=== PATIENT | male | born 1950 | race Caucasian/White ===

== ENCOUNTER → 2017-01-03 | Outpatient (CLI) | payer MEDICARE | LOC: COL.VAS 07:59 | DX: I65.21 Occlusion and stenosis of right carotid artery (principal); H93.8X1 Other specified disorders of right ear ==

== ENCOUNTER → 2019-12-05 | Outpatient (CLI) | payer MEDICARE, OTHER | LOC: COL.RAD 11-08 10:30 | DX: Z13.6 Encounter for screening for cardiovascular disorders (principal); Z87.891 Personal history of nicotine dependence ==

== ENCOUNTER 2021-12-31 16:11 | Emergency (ER) | payer MEDICARE, OTHER ==
[~2021-12-31] VITALS: Ht 185.4 cm; Wt 95.5 kg
[2021-12-31 16:30] VITALS: BP 176/95; PULSE 63; TEMP 98.5
[2021-12-31 17:16] LABS: BASO % 0.4 % (0.0-2.0); EOS % 0.6 % (0.0-4.0); GRAN # 4.4 K/mm3 (1.4-6.5); GRAN % 64.3 % (42.2-75.2); HEMATOCRIT 40.8 % (42.0-52.0); LYMPH # 1.6 K/mm3 (1.2-3.4); LYMPH % 24.1 % (20.0-51.0); MEAN CELL VOLUME 100 fl (80.0-100.0); MEAN CORPUSCULAR HEMOGLOBIN 34 pg (27-31); MEAN CORPUSCULAR HGB CONC 34 g/dl (33.0-37.0); MEAN PLATELET VOLUME 9.4 fl (7.4-10.4); MONO # 0.7 K/mm3 (0.1-0.6); PLATELET COUNT 198 K/mm3 (130-400); RED BLOOD COUNT 4.08 M/mm3 (4.20-5.60); REDCELL DISTRIBUTION WIDTH-CV 13.1 % (11.5-14.5)
[2021-12-31 17:28] LABS: ALBUMIN 3.2 gm/dL (3.4-4.8); BILIRUBIN,TOTAL 0.6 mg/dL (0.2-1.2); CALCIUM 8.9 mg/dL (8.4-10.2); CREATININE, serum 0.95 mg/dL (0.72-1.25); POTASSIUM 4.3 mmol/L (3.5-4.5); TOTAL PROTEIN 6.5 gm/dL (6.2-8.1)
== END 2021-12-31 18:03 | disposition left against medical advice (07) ==
LOC: COL.ER 16:11
PROVIDERS: Physician Assistant
DX: S09.90XA Unspecified injury of head, initial encounter (principal); S01.111A Laceration without foreign body of right eyelid and periocular area, initial encounter; I48.91 Unspecified atrial fibrillation; Z79.01 Long term (current) use of anticoagulants; W01.198A Fall on same level from slipping, tripping and stumbling with subsequent striking against other object, initial encounter

== ENCOUNTER 2022-05-29 08:02 | Emergency (ER) | payer MEDICARE, OTHER ==
[~2022-05-29] VITALS: Ht 182.9 cm; Wt 95.5 kg
[2022-05-29 08:09] VITALS: BP 135/80; TEMP 98.7
[2022-05-29] MEDS ORDERED: ELIQUIS 5MG PO (08:09)
[2022-05-29 09:28] VITALS: PULSE 48
== END 2022-05-29 09:28 | disposition home or self-care (01) ==
LOC: COL.ER 08:02
DX: S01.21XA Laceration without foreign body of nose, initial encounter (principal); S01.81XA Laceration without foreign body of other part of head, initial encounter; I48.91 Unspecified atrial fibrillation; Z79.01 Long term (current) use of anticoagulants; W01.198A Fall on same level from slipping, tripping and stumbling with subsequent striking against other object, initial encounter; Y92.480 Sidewalk as the place of occurrence of the external cause

== ENCOUNTER → 2022-06-07 | Outpatient (CLI) | payer MEDICARE, OTHER ==
[~2022-06-07] MED LIST: ATIVAN 0.50.5 MG/TAB PO; COREG12.5 MG PO; ELIQUIS 5MG PO; LASIX 40MG TABL40 MG PO; LEXAPRO20 MG PO; LIPITOR 10MG10 MG PO; NORVASC 5MG5 MG/TAB PO; SYNTHROID0.1 MG/TAB PO; TAMBOCOR50 MG PO
[2022-06-07 12:01] VITALS: BP 134/84; PULSE 51; TEMP 97.3
== END ==
LOC: COL.ER 11:33
DX: Z48.02 Encounter for removal of sutures (principal)

== ENCOUNTER 2022-06-27 08:06 | Day surgery (SDC) | payer MEDICARE, OTHER ==
[2022-06-27] VITALS (104 sets, daily range): BP systolic 101–136; BP diastolic 69–99; PULSE 50–65; TEMP 98.1; O2SAT 92–99
[~2022-06-27] VITALS: Ht 185.4 cm; Wt 96.8 kg
[~2022-06-27 08:06] MED LIST changes: -ATIVAN 0.50.5 MG/TAB PO; -COREG12.5 MG PO; -LASIX 40MG TABL40 MG PO; -LEXAPRO20 MG PO; -LIPITOR 10MG10 MG PO; -NORVASC 5MG5 MG/TAB PO; -SYNTHROID0.1 MG/TAB PO; -TAMBOCOR50 MG PO
[2022-06-27 09:01] LABS: HEMATOCRIT 40.3 % (42.0-52.0); HEMOGLOBIN 13.8 g/dl (13.5-18.0); MEAN CELL VOLUME 90 fl (80.0-100.0); MEAN CORPUSCULAR HEMOGLOBIN 31 pg (27-31); MEAN CORPUSCULAR HGB CONC 34 g/dl (33.0-37.0); PLATELET COUNT 214 K/mm3 (130-400); REDCELL DISTRIBUTION WIDTH-CV 14.7 % (11.5-14.5)
[2022-06-27 09:13] LABS: CALCIUM 9.4 mg/dL (8.4-10.2); CREATININE, serum 1.09 mg/dL (0.72-1.25); INR 0.9 (0.8-3.0); PROTHROMBIN TIME 10.8 SECONDS (9.7-12.8)
[2022-06-27 09:15] LABS: PARTIAL THROMBOPLASTIN TIME 34.3 SECONDS (26.0-37.0)
[2022-06-27] MEDS ORDERED: SYNTHROID0.1 MG/TAB PO (09:27)
[2022-06-27] MEDS ORDERED: COREG12.5 MG PO (09:28)
[2022-06-27] MEDS ORDERED: LIPITOR 10MG10 MG PO (09:29)
[2022-06-27] MEDS ORDERED: TAMBOCOR50 MG PO (09:29)
[2022-06-27] MEDS ORDERED: NORVASC 5MG5 MG/TAB PO (09:29)
[2022-06-27] MEDS ORDERED: LEXAPRO20 MG PO (09:30)
[2022-06-27] MEDS ORDERED: ELIQUIS 5MG PO (09:30)
[2022-06-27] MEDS ORDERED: ATIVAN 0.50.5 MG/TAB PO (09:31)
[2022-06-27] MEDS ORDERED: LASIX 40MG TABL40 MG PO (09:31)
--- NOTE | 2022-06-27 10:21 | NUR ---
Pt to procedure.
--- NOTE | 2022-06-27 10:37 | NUR ---
See merge for all medication, assessment, intervention, and vital sign times.
--- NOTE | 2022-06-27 11:25 | NUR ---
Pt returned from procedure,report from Julio Padilla.
--- NOTE | 2022-06-27 14:30 | NUR ---
All air removed from right radial band in 2-3 ml incriments.No bleeding observed at site.
--- NOTE | 2022-06-27 15:00 | NUR ---
Discharge instructions given to pt.pt verbalizes understanding.Pt escorted out via wheelchair by this nurse.
== END 2022-06-27 17:12 ==
LOC: COL.CAR 08:06
PROVIDERS: Internal Medicine Cardiovascular Disease
DX: R94.39 Abnormal result of other cardiovascular function study (principal); I48.0 Paroxysmal atrial fibrillation; I10 Essential (primary) hypertension; E78.2 Mixed hyperlipidemia; I34.9 Nonrheumatic mitral valve disorder, unspecified; I77.819 Aortic ectasia, unspecified site; I51.7 Cardiomegaly
CPT/HCPCS: C1769; J1644; J2250; J3010; Q9967